=== PATIENT | female | born 1950 | race Hispanic/Latino ===

== ENCOUNTER → 2022-11-24 | Outpatient (CLI) | payer OTHER | END | disposition home or self-care (01) | LOC: SHCH 10:02 | PROVIDERS: ATTEND Internal Medicine Cardiovascular Disease | DX: I87.2 Venous insufficiency (chronic) (peripheral) (principal); I82.492 Acute embolism and thrombosis of other specified deep vein of left lower extremity | CPT/HCPCS: 93970 ==

== ENCOUNTER → 2023-05-03 | Outpatient (CLI) | payer OTHER ==
[2023-05-03 11:57] LABS: BASOPHILS # (AUTO) 0.06 K/uL (0.00-0.20); BASOPHILS % (AUTO) 0.6 % (0.0-5.0); EOSINOPHILS # (AUTO) 0.18 K/uL (0.00-0.70); EOSINOPHILS % (AUTO) 1.7 % (0.0-8.0); HEMATOCRIT 37.1 % (36-48); IMMATURE GRANULOCYTE ABSOLUTE 0.05 K/uL (0-1); LYMPHOCYTES # (AUTO) 2.8 K/uL (1.0-4.8); LYMPHOCYTES % (AUTO) 26.5 % (21.0-51.0); MEAN CORPUSCULAR HEMOGLOBIN 26.8 pg (27.0-33.0); MEAN CORPUSCULAR HGB CONC 31.8 g/dL (32.0-36.0); MEAN CORPUSCULAR VOLUME 84.1 fL (79-99); MONOCYTES # (AUTO) 0.7 K/uL (0.1-1.0); MONOCYTES % (AUTO) 7.1 % (3.0-13.0); NEUTROPHILS # (AUTO) 6.7 K/uL (1.8-7.7); NEUTROPHILS % (AUTO) 63.6 % (40.0-77.0); PLATELET COUNT (AUTO) 309 K/uL (130-400); RED BLOOD CELL COUNT(AUTO) 4.41 MIL/uL (4.00-5.50); RED CELL DISTRIBUTION WIDTH 14.7 % (11.0-15.5); WHITE BLOOD COUNT (AUTO) 10.5 K/uL (4.8-10.8)
[2023-05-03 12:10] LABS: CREATININE 0.9 mg/dL (0.5-1.5)
[2023-05-03 12:34] LABS: INR 0.93 (0.85-1.15); PROTHROMBIN TIME 10.3 SEC (9.6-11.6)
== END | disposition home or self-care (01) ==
LOC: LAB 09:36
PROVIDERS: ATTEND Internal Medicine Cardiovascular Disease
DX: I10 Essential (primary) hypertension (principal); I87.1 Compression of vein; E11.9 Type 2 diabetes mellitus without complications; I87.2 Venous insufficiency (chronic) (peripheral); E78.49 Other hyperlipidemia; C83.30 Diffuse large B-cell lymphoma, unspecified site; E66.01 Morbid (severe) obesity due to excess calories; Z68.42 Body mass index [BMI] 45.0-49.9, adult; E78.5 Hyperlipidemia, unspecified; M79.89 Other specified soft tissue disorders; Z79.899 Other long term (current) drug therapy
CPT/HCPCS: 36415; 80048; 85025; 85610; 85730

== ENCOUNTER → 2023-05-10 | Outpatient (CLI) | payer OTHER | END | disposition home or self-care (01) | LOC: CANPRECLI → SHCH 11:13 | PROVIDERS: ATTEND Internal Medicine Cardiovascular Disease | DX: I11.9 Hypertensive heart disease without heart failure (principal); I20.9 Angina pectoris, unspecified; R06.09 Other forms of dyspnea; R07.9 Chest pain, unspecified; E78.5 Hyperlipidemia, unspecified; E11.9 Type 2 diabetes mellitus without complications; E66.9 Obesity, unspecified | CPT/HCPCS: 93306 ==

== ENCOUNTER 2023-05-22 06:32 | Day surgery (SDC) | payer OTHER ==
[2023-05-20 11:13] LABS: BASOPHILS # (AUTO) 0.05 K/uL (0.00-0.20); BASOPHILS % (AUTO) 0.5 % (0.0-5.0); EOSINOPHILS # (AUTO) 0.12 K/uL (0.00-0.70); EOSINOPHILS % (AUTO) 1.2 % (0.0-8.0); HEMATOCRIT 38.6 % (36-48); IMMATURE GRANULOCYTE ABSOLUTE 0.06 K/uL (0-1); LYMPHOCYTES # (AUTO) 2.5 K/uL (1.0-4.8); LYMPHOCYTES % (AUTO) 24.3 % (21.0-51.0); MEAN CORPUSCULAR HEMOGLOBIN 26.9 pg (27.0-33.0); MEAN CORPUSCULAR HGB CONC 31.9 g/dL (32.0-36.0); MEAN CORPUSCULAR VOLUME 84.5 fL (79-99); MONOCYTES # (AUTO) 0.7 K/uL (0.1-1.0); MONOCYTES % (AUTO) 6.7 % (3.0-13.0); NEUTROPHILS # (AUTO) 6.9 K/uL (1.8-7.7); NEUTROPHILS % (AUTO) 66.7 % (40.0-77.0); PLATELET COUNT (AUTO) 314 K/uL (130-400); RED BLOOD CELL COUNT(AUTO) 4.57 MIL/uL (4.00-5.50); RED CELL DISTRIBUTION WIDTH 14.6 % (11.0-15.5); WHITE BLOOD COUNT (AUTO) 10.3 K/uL (4.8-10.8)
[2023-05-20 11:16] LABS: CREATININE 0.9 mg/dL (0.5-1.5); POTASSIUM 3.8 mmol/L (3.5-5.1)
[2023-05-20 11:43] VITALS: BP 150/70; PULSE 60; RESP 18
[2023-05-20 11:52] LABS: INR < 0.93 (0.85-1.15); PROTHROMBIN TIME 10.6 SEC (9.6-11.6)
[2023-05-20 11:54] LABS: PARTIAL THROMBOPLASTIN TIME 29.1 SEC (26.3-35.5)
[2023-05-22] VITALS (14 sets, daily range): BP systolic 148–173; BP diastolic 45–79; PULSE 54–62; RESP 10–21
[~2023-05-22] VITALS: Ht 157.5 cm; Wt 112.1 kg
[~2023-05-22 06:32] MED LIST: AMLO-258 PO; ASPI-1197 PO; CLOP75TA32 PO; DOXA4TAB3 PO; INSU3INS3 SQ; IRBE150T24 PO; LEVO100 PO; METO100T14 PO; PANT40TA54 PO; ROSU5TAB12 PO
[2023-05-22] MEDS ORDERED: 0.9%NACL 1000ML 1,000 ML IV ONE (07:29)
[2023-05-22] MEDS ORDERED: ACET-66 PO (08:07)
[2023-05-22] MEDS ORDERED: LIDOCAINE HCL 400MG/20ML VIAL ONE ×2 (10:08→10:44)
[2023-05-22] MEDS ORDERED: IODIXANOL 320 MG/ML 100 ML VIAL ONE (10:08)
[2023-05-22] MEDS ORDERED: NITROGLYCERIN 50MG VIAL ONE (10:09)
[2023-05-22] MEDS ORDERED: HEPARIN 10,000 UNIT/10ML (1,000 UNIT/ML) VIAL ONE (10:09)
[2023-05-22] MEDS ORDERED: FENTANYL CITRATE PF 50 MCG/1 ML 2ML VIAL ONE (10:32)
[2023-05-22] MEDS ORDERED: MIDAZOLAM HCL 1 MG/ML 2ML VIAL ONE (10:32)
[2023-05-22] MEDS ORDERED: 0.9%NACL 1000ML 1,000 ML IV SCH (11:30)
[2023-05-22] MEDS ORDERED: INSULIN HUMULIN R 100 UNIT/ML 3ML SQ SCH (11:30)
[2023-05-22] MEDS ORDERED: GLUCAGON 1MG KIT 1 MG ML IM PRN (11:30)
[2023-05-22] MEDS ORDERED: DEXTROSE 50%-WATER 50 ML DISP.SYRIN IV PRN (11:30)
[2023-05-22] MEDS ORDERED: TRAMADOL HCL 50 MG TABLET ONE (13:44)
== END 2023-05-22 17:53 | disposition home or self-care (01) ==
LOC: DAH 06:32
PROVIDERS: ATTEND Internal Medicine Cardiovascular Disease
DX: I87.2 Venous insufficiency (chronic) (peripheral) (principal); I83.93 Asymptomatic varicose veins of bilateral lower extremities; I87.1 Compression of vein; I10 Essential (primary) hypertension; E78.49 Other hyperlipidemia; E11.9 Type 2 diabetes mellitus without complications; E66.01 Morbid (severe) obesity due to excess calories; C83.80 Other non-follicular lymphoma, unspecified site; Z79.01 Long term (current) use of anticoagulants; Z80.0 Family history of malignant neoplasm of digestive organs; Z83.3 Family history of diabetes mellitus; Z68.42 Body mass index [BMI] 45.0-49.9, adult; Z85.028 Personal history of other malignant neoplasm of stomach
CPT/HCPCS: 80048; 85025; 85610; 85730; 36415; 71045; 93005; 37238; 37239; 37252; 37253 ×3; 82948 ×2; 36005; 75820; C1876 ×2; C1769; C1894 ×2; C1725; C1753; J3010; J3490 ×3; J7030; J1644 ×2; J2250; Q9967; A4215; A4222; A4221; A4663; A4216; A4606; A4223 ×3; 99156; 99157

== ENCOUNTER → 2023-09-24 | Outpatient (CLI) | payer OTHER ==
[~2023-09-24] MED LIST changes: +ACET-66 PO; +REGADENOSON 0.4 MG/5 ML PF SYG IVP ONE
== END | disposition home or self-care (01) ==
LOC: SHCH 08:52
PROVIDERS: ATTEND Internal Medicine Cardiovascular Disease
DX: R94.31 Abnormal electrocardiogram [ECG] [EKG] (principal); R06.09 Other forms of dyspnea
CPT/HCPCS: 78452; 96374; 93017; J2785; A9500 ×2

== ENCOUNTER → 2023-10-16 | Outpatient (CLI) | payer OTHER ==
[~2023-10-16] MED LIST changes: -IRBE150T24 PO; +IRBE150T34 PO; -REGADENOSON 0.4 MG/5 ML PF SYG IVP ONE
== END | disposition home or self-care (01) ==
LOC: SHCH 12:51
PROVIDERS: ATTEND Internal Medicine Cardiovascular Disease
DX: I11.9 Hypertensive heart disease without heart failure (principal); R06.09 Other forms of dyspnea; E11.9 Type 2 diabetes mellitus without complications; E78.5 Hyperlipidemia, unspecified
CPT/HCPCS: 93306

== ENCOUNTER → 2024-10-19 | Outpatient (CLI) | payer OTHER ==
[~2024-10-19] MED LIST changes: -ROSU5TAB12 PO; +ROSU5TAB51 PO
--- NOTE | 2024-10-20 08:42 | HMCSR ---
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 (R) 96.3cm/sec, Biphasic, Prof Fem Art. (L) 86.9cm/sec, Biphasic, Fem Art Prox. (R) 137.9cm/sec, Biphasic, Fem Art Prox. (L) 134.1cm/sec, Biphasic, Fem Art Mid. (R) 120.1cm/sec, Biphasic, Fem Art Mid. (L) 132.2cm/sec, Biphasic, Fem Art Dist (R) 132.5cm/sec, Biphasic, Fem Art Dist. (L) 100.8cm/sec, Biphasic, Pop Art(AK) (R) 88.3cm/sec, Biphasic, Pop Art (AK) (L) 71.8cm/sec, Biphasic, Pop Art (Fossa)(R) 95.2cm/sec, Biphasic, Pop Art (Fossa) (L) 87.0cm/sec, Biphasic, Pop Art(BK) (R) 106.3cm/sec, Biphasic, Pop Art (BK) (L) 106.3cm/sec, Biphasic, SIMULATION DEVELOPER Prox. (R) 124.2cm/sec, Biphasic, SIMULATION DEVELOPER Prox. (L) 100.8cm/sec, Biphasic, SIMULATION DEVELOPER Mid. (R) 87.9cm/sec, Biphasic, SIMULATION DEVELOPER Mid. (L) 92.5cm/sec, Biphasic, SIMULATION DEVELOPER Dist. (R) 81.4cm/sec, Biphasic, SIMULATION DEVELOPER Dist. (L) 120.1cm/sec, Biphasic, Per Art Prox. (R) 51.4cm/sec, Biphasic, Per Art Prox. (L) 43.2cm/sec, Biphasic, Per Art Mid. (R) 57.2cm/sec, Biphasic, Per Art Mid. (L) 58.7cm/sec, Biphasic, Per Art Dist. (R) 60.6cm/sec, Biphasic, Per Art Dist. (L) 54.6cm/sec, Biphasic, IVANIA Prox. (R) 104.2cm/sec, Biphasic, IVANIA Prox. (L) 90.3cm/sec, Biphasic, IVANIA Mid. (R) 217.9cm/sec, Biphasic Moderate > 50%IVANIA Mid. (L) 276.6cm/sec, Biphasic, Moderate > 50% IVANIA Dist. (R) 86.8cm/sec, Biphasic, IVANIA Dist. (L) 75.0cm/sec, Biphasic, Technologist Impression Velocities are suggestive of >50% stenosis in the Right mid IVANIA and Left mid IVANIA. 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
--- NOTE | 2024-10-20 08:43 | HMCSR ---
APPROVED REPORT Bilateral Lower Extremity Venous Study for DVT., Venous Competence. Indications i87.1, i87.2 Vein Imaging EIV (R): STENTED Normal flow, augmentation and compression. No evidence of DVT. 0.0ms of reflux. CFV (R): Normal flow, augmentation and compression. No evidence of DVT. 11.0ms 0.0ms of reflux. SFJ (R): Normal flow, augmentation and compression. No evidence of DVT. FEM (R): Normal flow, augmentation and compression. No evidence of DVT. POP (R): Normal flow, augmentation and compression. No evidence of DVT. DFV (R): Normal flow, augmentation and compression. No evidence of DVT. PTV (R): Normal flow, augmentation and compression. No evidence of DVT. Peroneals (R): Normal flow, augmentation and compression. No evidence of DVT. EIV (L): STENTED Cassandra l flow, augmentation and compression. No evidence of DVT. 928ms of reflux. CFV (L): Normal flow, augmentation and compression. No evidence of DVT. 14.3mm 1300ms of reflux. SFJ (L): Normal flow, augmentation and compression. No evidence of DVT. FEM (L): Recanalized flow, augmentation and partial compression. No evidence of DVT. Proximal 1106ms, Distal 1550ms of reflux. POP (L): Normal flow, augmentation and compression. No evidence of DVT. 1394ms of reflux. DFV (L): Normal flow, augmentation and compression. No evidence of DVT. PTV (L): Normal flow, augmentation and compression. No evidence of DVT. Peroneals (L): Normal flow, augmentation and compression. No evidence of DVT. Technologist Impression Left SFV demonstrates recanalized flow, normal augmentation with partial compression. chronic DVT is suggested. All other deep veins appear patent and compressible without evidence of thrombus, including the REIV and LEIV. Deep venous reflux noted in the LCFV, LSFV and LPopliteal veins. Superficial venous insufficiency noted in the RGSV at junction and LGSV. RGSV junction 5.9mm 578ms thigh 5.1mm 0.0ms knee 3.9mm 0.0ms calf 2.9mm 428ms RSSV prox 2.7mm 0.0ms mid 2.0mm 0.0ms LGSV junction 6.1mm 567ms thigh 7.5mm 706ms knee 6.8mm 789ms calf 4.4mm 0.0ms LSSV prox 4.2mm 406ms mid 3.2mm 0.0ms Conclusion Left SFV demonstrates recanalized flow, normal augmentation with partial compression. chronic DVT is suggested. All other deep veins appear patent and compressible without evidence of thrombus, including the REIV and LEIV. Deep venous reflux noted in the LCFV, LSFV and LPopliteal veins. Superficial venous insufficiency noted in the RGSV at junction and LGSV. Conclusion Left SFV demonstrates recanalized flow, normal augmentation with partial compression. chronic DVT is suggested. All other deep veins appear patent and compressible without evidence of thrombus, including the REIV and LEIV. Deep venous reflux noted in the LCFV, LSFV and LPopliteal veins. Superficial venous insufficiency noted in the RGSV at junction and LGSV.
== END | disposition home or self-care (01) ==
LOC: SHCH 09:50
PROVIDERS: ATTEND Internal Medicine Cardiovascular Disease
DX: I73.9 Peripheral vascular disease, unspecified (principal); I87.1 Compression of vein; I87.2 Venous insufficiency (chronic) (peripheral)
CPT/HCPCS: 93925; 93970